=== PATIENT | male | born 1980 | race Asian ===

== ENCOUNTER 2019-11-10 15:56 | Emergency (ER) | payer OTHER ==
[~2019-11-10] VITALS: Ht 165.1 cm; Wt 89.4 kg
[2019-11-10 16:17] VITALS: Ht 165.1 cm; Wt 89.4 kg
[2019-11-10 17:05] VITALS: BP 150/71
== END 2019-11-10 17:05 | disposition home or self-care (01) ==
LOC: ED 15:56
DX: S16.1XXA Strain of muscle, fascia and tendon at neck level, initial encounter (principal); M54.6 Pain in thoracic spine; J45.909 Unspecified asthma, uncomplicated; I10 Essential (primary) hypertension; V49.49XA Driver injured in collision with other motor vehicles in traffic accident, initial encounter; Y93.I9 Activity, other involving external motion; Y92.488 Other paved roadways as the place of occurrence of the external cause; Y99.8 Other external cause status
CPT/HCPCS: J1885